=== PATIENT | female | born 1985 | race Caucasian/White ===

== ENCOUNTER 2019-08-27 10:03 | Emergency (ER) | payer SELFPAY ==
[2019-08-27 10:03] VITALS: BP 110/81; PULSE 71; RESP 18; TEMP 37.4; O2SAT 99; BMI 26.5
--- NOTE | 2019-08-27 10:05 | ED_ITS ---
Entered by Pam Avendano, acting as scribe for Darrius White MD HPI - Chest Pain General: Chief Complaint: Chest Pain Stated Complaint: CHEST PAIN Time Seen by Provider: 08/27/19 10:04 Source: patient and EMS Mode of arrival: EMS Limitations: no limitations History of Present Illness: HPI narrative: 34 yo female presents with chest pain. pt states this started just [employer]. pt states while working she was lifting above her head to get bread from shelf she felt like someone punched her in the chest. pt states she has had shortness of breath. pt states she drinks a lot of caffeine daily. pt denies any other symptoms at this time. complaint: chest pain and other (shortness of breath) Onset (ago): hour(s) (1 hour ago) Timing of current episode: other (pressure) Onset: during exertion Pain location: substernal Pain radiation: none Severity: moderate Quality: heaviness and sharp Relieving factors: nitroglycerin Exacerbating factors: exertion Associated symptoms: Reports dyspnea and other (shortness of breath, chest pa in); Deny abdominal pain, fever(s), nausea or vomiting Treatment prior to arrival: nitroglycerin (EMS) Review of Systems General: Reports: 10 or more systems reviewed and unremarkable except in HPI and below Const: Denies: fever, chills, body aches or change in appetite Eyes: Denies: blurry vision or eye discomfort ENMT: Denies: throat pain or dental pain Card: Reports: chest pain Resp: Reports: shortness of breath GI: Denies: abdominal pain, nausea, vomiting or diarrhea : Denies: painful urination Musc: Denies: neck pain or back pain Skin/Breast: Denies: rash Neuro: Denies: headache Psych: Denies: depression Eugenio/Lymph: Denies: easy bruising All/Imm: Denies: hives PFSH ED PFSH: Social History Smoking and tobacco status: current every day smoker Physical Exam Const: COMMON NORMALS: no apparent distress, oriented x3 and healthy appearing HENMT: COMMON NORMALS: normocephalic and head/scalp atraumatic HEAD & SCALP: normocephalic and atraumatic Eye: COMMON NORMALS: PERRL and EOMs intact bilaterally PUPIL: Yes PERRL Neck/C-Spine: COMMON NORMALS: full ROM and supple Chest: COMMONS NORMALS: inspection of chest normal and palpation of chest normal Resp: COMMON NORMALS: normal respiratory effort, no retractions, no use of accessory muscles and clear to auscultation bilaterally AUSCULTATION: clear to auscultation bilaterally GI: COMMON NORMALS: normal to inspection, nondistended, normoactive bowel sounds, soft to palpation, non-tender and no masses PALPATION: Yes soft Extremity: COMMON NORMALS: normal to inspection and full ROM Neuro: COMMON NORMALS: oriented x3, moves all extremities and no focal motor deficits Psych: COMMON NORMALS: mental status grossly normal, thought process normal and cooperative THOUGHT PROCESS: normal thought process Skin: COMMON NORMALS: no rashes or lesions noted and no wounds GENERAL SKIN EXAM: no rashes or lesions noted Course Vital Signs: Vital signs: Vital Signs Temperature 99.3 F 08/27/19 10:03 Pulse Rate 66 08/27/19 13:17 Respiratory Rate 16 08/27/19 13:17 Blood Pressure 110/68 08/27/19 13:17 Pulse Oximetry 97 08/27/19 13:17 MDM - Chest Pain MDM Narrative: Medical decision making narrative: Patient presents with chest pain that is atypical in nature. Patient's initial and repeat troponins here are negative. Patient's EKG is normal as well. X-ray shows no abnormalities. D-dimer is negative she has no signs of pulmonary embolism. I took her blood pressures in both arms and they were quite similar with no signs of aortic dissection. Patient is stable for discharge and is to follow-up with her primary care doctor in 5 to 7 days. She is to return to the ER she has any more pain. Patient understands and agrees to plan. Lab Data: Labs: Lab Results 08/27/19 08/27/19 08/27/19 Range/Units 10:19 10:19 10:19 WBC 8.9 (4.0-10.0) 10^3/ uL RBC 4.88 (4.1-5.3) 10^6/u L Hgb 14.8 (11.5-15.3) g/dL Hct 44.3 (37.0-47.0) % MCV 90.8 (81-99) fL MCH 30.3 (28.0-34.0) pg MCHC 33.4 (30.0-36.0) g/dL RDW 13.1 (12.1-15.1) % Plt Count 241 (130-400) 10^3/c mm MPV 11.0 H (7.4-10.4) fL Neut % (Auto) 49.2 % Lymph % (Auto) 42.3 % Bowie % (Auto) 6.3 % Eos % (Auto) 1.0 % Baso % (Auto) 1.0 % Neut # (Auto) 4.4 (1.8-7.7) 10^3/u L Lymph # (Auto) 3.8 (0.8-4.8) 10^3/u L Bowie # (Auto) 0.6 (0.2-0.9) 10^3/u L Eos # (Auto) 0.1 (0.0-0.8) 10^3/u L Baso # (Auto) 0.1 (0.0-0.1) 10^3/u L Nucleated RBC % (a uto) 0 % Nucleated RBCs # 0.0 /100WBC D-Dimer 0.20 (0-0.59) ug/mIFE U Sodium 137 (136-145) mmol/L Potassium 4.1 (3.5-5.1) mmol/L Chloride 103 (98-107) mmol/L Carbon Dioxide 27 (22-29) mmol/L Anion Gap 11.1 (5-19) BUN 8 (6-20) mg/dL Creatinine 0.6 (0.5-0.9) mg/dL GFR Calculation 114.4 (90-130) mL/min Glucose 94 (65-115) mg/dL Calculated Osmolal ity 280 L (285-295) mOsm/k g Calcium 9.2 (8.5-10.5) mg/dL Total Bilirubin 0.5 (0.15-1.2) mg/dL AST 15 (0-32) U/L ALT 14 (0-33) U/L Alkaline Phosphata se 76 (35-105) IU/L Troponin T Baselin e (0-10) ng/mL Troponin T 120 Min [place] (0-10) ng/mL Delta Troponin T (0-10) ABS# Total Protein 7.2 (6.6-8.7) g/dL Albumin 4.0 (3.5-5.2) g/dL Globulin 3.2 (1.3-4.6) g/dL 08/27/19 08/27/19 Range/Units 10:19 12:26 WBC (4.0-10.0) 10^3/ uL RBC (4.1-5.3) 10^6/u L Hgb (11.5-15.3) g/dL Hct (37.0-47.0) % MCV (81-99) fL MCH (28.0-34.0) pg MCHC (30.0-36.0) g/dL RDW (12.1-15.1) % Plt Count (130-400) 10^3/c mm MPV (7.4-10.4) fL Neut % (Auto) % Lymph % (Auto) % Bowie % (Auto) % Eos % (Auto) % Baso % (Auto) % Neut # (Auto) (1.8-7.7) 10^3/u L Lymph # (Auto) (0.8-4.8) 10^3/u L Bowie # (Auto) (0.2-0.9) 10^3/u L Eos # (Auto) (0.0-0.8) 10^3/u L Baso # (Auto) (0.0-0.1) 10^3/u L Nucleated RBC % (a uto) % Nucleated RBCs # /100WBC D-Dimer (0-0.59) ug/mIFE U Sodium (136-145) mmol/L Potassium (3.5-5.1) mmol/L Chloride (98-107) mmol/L Carbon Dioxide (22-29) mmol/L Anion Gap (5-19) BUN (6-20) mg/dL Creatinine (0.5-0.9) mg/dL GFR Calculation (90-130) mL/min Glucose (65-115) mg/dL Calculated Osmolal ity (285-295) mOsm/k g Calcium (8.5-10.5) mg/dL Total Bilirubin (0.15-1.2) mg/dL AST (0-32) U/L ALT (0-33) U/L Alkaline Phosphata se (35-105) IU/L Troponin T Baselin e 6 (0-10) ng/mL Troponin T 120 Min [place] 6.00 (0-10) ng/mL Delta Troponin T 0 (0-10) ABS# Total Protein (6.6-8.7) g/dL Albumin (3.5-5.2) g/dL Globulin (1.3-4.6) g/dL Imaging Data^: CXR: Radiologist's impression: [address] [place] [address] XRay Report Signed Patient: Stephanie Jaime Unit #: [id number] : 1985 9 Age/Sex: 34 / F ADM Date: 08/27/19 Loc: ER Room/Bed: Attending Dr: Ordering Provider/Ordering MD: Darrius White MD Date of Service: 08/27/19 Procedure(s): XR chest 1V portable [id number] Accession Number(s): [id number] Report Number: [id number] WS: [id number] XR chest 1V portable [id number] REASON FOR EXAM: cp FINDINGS: The heart mediastinum were normal. The lung wilcox are well aerated. There is no pneumonia, pleural effusion, pulmonary edema, pneumothorax, or mass effect. The hilum and apices normal. No osseous abnormalities. XR/XR chest 1V portable [id number] IMPRESSION: Negative chest for acute pathology. EKG Data^: EKG 1: Attestation: I personally reviewed and interpreted this EKG as follows: EKG interpretation date: 08/27/19 EKG interpretation time: 10:33 Interpretation: nsr hr [address] or t wave abnormalities qrs 90 qtc 397 EKG 2: Attestation: I personally reviewed and interpreted this EKG as follows: EKG interpretation date: 08/27/19 EKG interpretation time: 11:55 Interpretation: sinus shazia hr [address] or t wave abnormalities qrs 88 qtc 399 Discharge Plan Discharge Patient Disposition: Home, Self-Care Clinical Impression: Chest pain Qualifiers: Chest pain type: unspecified Qualified Code(s): R07.9 - Chest pain, unspecified Condition: Stable Prescriptions: No Action No Known Home Medications RF: 0 Discharge Orders: Discharge Order (Routine); Ordered 08/27/19 Ordered By: Darrius White Referrals: Laurie Briggs MD [Family Provider] - 4-7 days Discharge Diet: Advance as tolerated Discharge Activity: Resume usual activity Patient Instructions: Chest Pain (ED) Stand Alone Forms: Work/School Release Discharge Date/Time: 08/27/19 13:17 Coding Level of Care Code ED Meter Reader for Chg Fwd Exam Comprehensive The documentation recorded by the Juan Alberto lizarraga Bridget Annette, accurately reflects the service I personally performed and the decisions made by Cindy mcdaniels Korby, MD
[2019-08-27 10:10] VITALS: BP 106/62; PULSE 71; RESP 17; O2SAT 97; O2SAT 98
--- NOTE | 2019-08-27 10:10 | ECG_ITS ---
Measurements Intervals [place] Rate: 66 P: 62 IN: 127 QRS: 69 QRSD: 90 T: 60 QT: 373 QTc: 392 SINUS RHYTHM POSSIBLE RIGHT VENTRICULAR CONDUCTION DELAY [RSR (QR) IN V1/V2] No previous ECG available for comparison Electronically Signed On 08-27-2019 12:40:07 CDT by Selin Dorado [email or web address]
--- NOTE | 2019-08-27 10:10 | XR_ITS ---
WS: [id number] XR chest 1V portable [id number] REASON FOR EXAM: cp FINDINGS: The heart mediastinum were normal. The lung wilcox are well aerated. There is no pneumonia, pleural effusion, pulmonary edema, pneumotho rax, or mass effect. The hilum and apices normal. No osseous abnormalities. XR/XR chest 1V portable [id number] IMPRESSION: Negative chest for acute pathology.
[2019-08-27] MEDS: ondansetron 2 mg/ML SDV 2 mL 4 MG IVP (10:22)
[2019-08-27 10:23] VITALS: RESP 18; O2SAT 99
[2019-08-27] MEDS: morphine 4 mg/mL SDV 1 mL IVP (10:23)
[2019-08-27 10:24] LABS: Basophils # 0.1 10^3/uL (0.0-0.1); Eosinophils # 0.1 10^3/uL (0.0-0.8); Hematocrit 44.3 % (37.0-47.0); Hemoglobin 14.8 g/dL (11.5-15.3); Lymphocytes # 3.8 10^3/uL (0.8-4.8); Lymphocytes % 42.3 %; Mean Corpuscular HGB Conc 33.4 g/dL (30.0-36.0); Mean Corpuscular Hemoglobin 30.3 pg (28.0-34.0); Mean Corpuscular Volume 90.8 fL (81-99); Monocytes # 0.6 10^3/uL (0.2-0.9); Monocytes % 6.3 %; Neutrophils # 4.4 10^3/uL (1.8-7.7); Neutrophils % 49.2 %; Nucleated Red Blood Cells % 0 %; Platelet Count 241 10^3/cmm (130-400); Red Blood Count 4.88 10^6/uL (4.1-5.3); Red Cell Distribution Width 13.1 % (12.1-15.1); White Blood Count 8.9 10^3/uL (4.0-10.0)
[2019-08-27 10:39] LABS: Alanine Aminotransferase 14 U/L (0-33); Alkaline Phosphatase 76 IU/L (35-105); Anion Gap 11.1 (5-19); Aspartate Amino Transferase 15 U/L (0-32); Blood Urea Nitrogen 8 mg/dL (6-20); Calcium 9.2 mg/dL (8.5-10.5); Carbon Dioxide 27 mmol/L (22-29); Chloride 103 mmol/L (98-107); Globulin 3.2 g/dL (1.3-4.6); Glomerular Filtration Rate 114.4 mL/min (90-130); Glucose 94 mg/dL (65-115); Osmolality Calculated 280 mOsm/kg (285-295); Potassium 4.1 mmol/L (3.5-5.1); Sodium 137 mmol/L (136-145); Total Bilirubin 0.5 mg/dL (0.15-1.2); Total Protein 7.2 g/dL (6.6-8.7)
[2019-08-27 10:40] LABS: Troponin(5th) Baseline 6 ng/mL (0-10)
[2019-08-27 10:54] VITALS: BP 114/65; PULSE 61; RESP 16; O2SAT 97
[2019-08-27 11:44] VITALS: BP 110/66; PULSE 54; RESP 17; O2SAT 97
--- NOTE | 2019-08-27 12:10 | ECG_ITS ---
Measurements Intervals [place] Rate: 53 P: 62 DC: 125 QRS: 68 QRSD: 88 T: 55 QT: 415 QTc: 393 SINUS BRADYCARDIA POSSIBLE RIGHT VENTRICULAR CONDUCTION DELAY [RSR (QR) IN V1/V2] Compared to ECG 08/27/2019 10:12:01 Sinus rhythm no longer present Electronically Signed On 08-28-2019 8:51:41 CDT by Selin Dorado [email or web address]
[2019-08-27 12:55] LABS: Troponin 5 2HR Delta 0 ABS# (0-10)
[2019-08-27 13:17] VITALS: BP 110/68; PULSE 66; RESP 16; O2SAT 97
== END 2019-08-27 13:17 | disposition home or self-care (01) ==
PROVIDERS: Emergency Provider Emergency Medicine; Family Provider Family Medicine
DX: R07.9 Chest pain, unspecified (principal); F17.200 Nicotine dependence, unspecified, uncomplicated
CPT/HCPCS: 12345; 36415; 71045; 80053; 84484; 85025; 85378; 93005; 93010; 96374; 96375; 99283; 99284; J2270; J2405

== ENCOUNTER → 2021-02-06 16:54 | Outpatient (BNVA) | payer MEDICAID, SELFPAY | PROVIDERS: Family Provider Family Medicine; Visit Provider Nurse Practitioner Family | DX: J01.00 Acute maxillary sinusitis, unspecified (principal); Z20.822 Contact with and (suspected) exposure to COVID-19 | CPT/HCPCS: 87635 ==

== ENCOUNTER → 2021-02-15 09:26 | Outpatient (BNVA) | payer MEDICAID, SELFPAY | PROVIDERS: Family Provider Family Medicine | DX: R05 Cough (principal); Z20.822 Contact with and (suspected) exposure to COVID-19; J06.9 Acute upper respiratory infection, unspecified | CPT/HCPCS: 71046; 80053; 85025 ==

== ENCOUNTER → 2021-10-04 10:13 | Outpatient (BNVA) | payer MEDICAID, SELFPAY | PROVIDERS: Family Provider Family Medicine; PCP Nurse Practitioner Family; Visit Provider Nurse Practitioner Family | DX: R53.83 Other fatigue (principal) | CPT/HCPCS: 80053; 80061; 82306; 82607; 84439; 84443; 85025 ==

== ENCOUNTER → 2021-11-08 14:14 | Outpatient (BNVA) | payer MEDICAID, SELFPAY | PROVIDERS: Family Provider Family Medicine; PCP Nurse Practitioner Family; Referring Provider Nurse Practitioner Family; Visit Provider Podiatrist Foot & Ankle Surgery | DX: Q82.8 Other specified congenital malformations of skin (principal); B07.0 Plantar wart; M79.671 Pain in right foot; M79.672 Pain in left foot | CPT/HCPCS: 17110; 99203; 99204 ==

== ENCOUNTER → 2021-12-07 12:31 | Outpatient (BNVA) | payer MEDICAID, SELFPAY | PROVIDERS: Family Provider Family Medicine; PCP Nurse Practitioner Family; Visit Provider Podiatrist Foot & Ankle Surgery | DX: Q82.8 Other specified congenital malformations of skin (principal); M79.671 Pain in right foot; M79.672 Pain in left foot | CPT/HCPCS: 17110 ==

== ENCOUNTER → 2022-01-03 13:15 | Outpatient (BNVA) | payer MEDICAID, SELFPAY | PROVIDERS: Family Provider Family Medicine; PCP Nurse Practitioner Family; Visit Provider Podiatrist Foot & Ankle Surgery | DX: Q82.8 Other specified congenital malformations of skin | CPT/HCPCS: 17110 ==

== ENCOUNTER → 2022-02-01 15:29 | Outpatient (BNVA) | payer MEDICAID, SELFPAY | PROVIDERS: Family Provider Family Medicine; PCP Nurse Practitioner Family; Visit Provider Podiatrist Foot & Ankle Surgery | DX: Q82.8 Other specified congenital malformations of skin (principal) | CPT/HCPCS: 17110 ==

== ENCOUNTER → 2022-03-07 15:04 | Outpatient (BNVA) | payer MEDICAID, SELFPAY | PROVIDERS: Family Provider Family Medicine; PCP Nurse Practitioner Family; Visit Provider Podiatrist Foot & Ankle Surgery | DX: Q82.8 Other specified congenital malformations of skin (principal) | CPT/HCPCS: 17110 ==

== ENCOUNTER → 2022-04-10 12:00 | Outpatient (BNVA) | payer MEDICAID, SELFPAY | PROVIDERS: Family Provider Family Medicine; PCP Nurse Practitioner Family; Visit Provider Nurse Practitioner Women's Health | DX: B00.9 Herpesviral infection, unspecified (principal); Z12.4 Encounter for screening for malignant neoplasm of cervix; Z11.3 Encounter for screening for infections with a predominantly sexual mode of transmission; Z30.9 Encounter for contraceptive management, unspecified; Z30.433 Encounter for removal and reinsertion of intrauterine contraceptive device | CPT/HCPCS: 86592; 86695; 86696; 86803; 87340; 87491; 87591; 87624; 87661; 87806 ==

== ENCOUNTER → 2023-01-29 15:46 | Outpatient (BNVA) | payer MEDICAID, SELFPAY | PROVIDERS: Family Provider Family Medicine; PCP Nurse Practitioner Family; Visit Provider Nurse Practitioner Family | DX: R05.9 Cough, unspecified (principal); J40 Bronchitis, not specified as acute or chronic | CPT/HCPCS: 87426 ==

== ENCOUNTER → 2023-04-29 12:14 | Outpatient (BNVA) | payer OTHER, SELFPAY | PROVIDERS: Family Provider Family Medicine; PCP Nurse Practitioner Family; Visit Provider Nurse Practitioner Family | DX: I95.9 Hypotension, unspecified (principal); F41.9 Anxiety disorder, unspecified; F32.A Depression, unspecified; Z78.9 Other specified health status | CPT/HCPCS: 80053; 82306; 84443; 85025 ==